=== PATIENT | male | born 1965 | race Hispanic/Latino ===

== ENCOUNTER 2017-04-05 16:20 | Emergency (ER) | payer SELFPAY ==
[2017-04-05 16:25] VITALS: BP 147/97; PULSE 125; RESP 20; O2SAT 97
[2017-04-05 16:35] VITALS: TEMP 98.1
[2017-04-05] MEDS ORDERED: Sodium Chloride 0.9% 1,000 ML IV STA (16:38)
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
--- NOTE | 2017-04-05 17:57 | CT ---
PROCEDURE: CT HEAD WITHOUT CONTRAST. HISTORY: head injury alcohol intoxication COMPARISON: None available. TECHNIQUE: Axial computed tomography images were obtained through the head/brain without intravenous contrast. Radiation dose: Total exam DLP = 1433.87 mGy-cm. This CT exam was performed using one or more of the following dose reduction techniques: Automated exposure control, adjustment of the mA and/or kV according to patient size, and/or use of iterative reconstruction technique. FINDINGS: HEMORRHAGE: No intracranial hemorrhage. BRAIN: Diffuse atrophy with prominence of the ventricles and sulci noted. No mass effect or edema. Mild scattered nonspecific white matter changes. The porter-white matter differentiation appears otherwise intact. Please note that MRI with diffusion imaging is more sensitive in the detection of acute ischemic event. VENTRICLES: No hydrocephalus. CALVARIUM: Unremarkable. PARANASAL SINUSES: Unremarkable as visualized. No significant inflammatory changes. MASTOID AIR CELLS: Unremarkable as visualized. No inflammatory changes. OTHER FINDINGS: Posterior right scalp hematoma. IMPRESSION: Posterior right scalp hematoma. No acute intracranial pathology identified. See above.
== END 2017-04-05 18:24 | disposition home or self-care (01) ==
LOC: H.ER 16:20
DX: S01.01XA Laceration without foreign body of scalp, initial encounter (principal); W19.XXXA Unspecified fall, initial encounter; Y92.89 Other specified places as the place of occurrence of the external cause; F10.129 Alcohol abuse with intoxication, unspecified; F17.200 Nicotine dependence, unspecified, uncomplicated
CPT/HCPCS: 70450; 82948; 90471; 90715; 99282; G0480